=== PATIENT | male | born 1980 | race Two or more races ===

== ENCOUNTER → 2020-08-31 23:30 | Outpatient (CLI) | payer OTHER | END | disposition home or self-care (01) | LOC: PPH VACUNA 23:30 | DX: Z23 Encounter for immunization (principal) ==

== ENCOUNTER 2020-09-21 08:40 | Outpatient (CLI) | payer OTHER | END 2020-09-21 08:42 | disposition home or self-care (01) | LOC: PPH VACUNA 08:40 | DX: Z23 Encounter for immunization (principal) ==